=== PATIENT | male | born 1940 | race Caucasian/White ===

== ENCOUNTER → 2019-01-09 10:35 | Outpatient (CLI) | payer MEDICARE, SELFPAY ==
--- NOTE | 2019-01-09 | DI.ECHO.S_ITS ---
[facility] +---------+ : : [address] : [place] : : : : [id number] : : : : Phone: [phone]+ Echocardiogram Report + + :Name: MOIZ HAILE Study Date: 01/09/2019 Height: 70 in : :[facility] Weight: 150 lb : : Gender: Male BSA: 1.8 m2 : :: 1940 Age: 78 yrs BP: 120/82 mmHg: :Reason For Study: CAD : : Performed By: [facility] Staff : :Referring: Sarwat CENTENO B : + + Interpretation Summary 1) Normal left ventricular thickness and size with low normal systolic function (EF 50-55%). 2) Normal right ventricular size and function. 3) Borderline mitral valve prolapse involving the microfilm operator leaflet. 4) Mild mitral regurgitation present. 5) No prior Echo available for comparison. Procedure: A two-dimensional transthoracic echocardiogram with color flow and Doppler was performed. The study quality was technically difficult. Foreshortened apical windows. There is no prior echocardiogram noted for this patient. The patient was in a bradycardic rhythm during the exam. Left Ventricle: The left ventricle is normal in size. There is normal left ventricular wall thickness. Left ventricular systolic function is low normal. The ejection fraction is estimated to be 50-55%. There are no focal wall motion abnormalities. Right Ventricle: The right ventricle is normal in size and function. Atria: The left atrium is moderately dilated. The right atrium is mildly dilated. The interatrial septum is intact with no evidence for an atrial septal defect. Mitral Valve: Nodular calcification located on the anterior leaflet. There is borderline mitral valve prolapse. There is prolapse of the posterior mitral valve leaflet(s). There is mild mitral regurgitation. Aortic Valve: The aortic valve is trileaflet. The aortic valve opens well. Minimal aortic sclerosis. There is no aortic valve stenosis. There is trace aortic regurgitation. Tricuspid Valve: The tricuspid valve is normal in structure and function. There is trace tricuspid regurgitation. The right ventricular systolic pressure is estimated to be at least 18 mmHg based on an estimated right atrial pressure of 3 mm Hg. Pulmonic Valve: The pulmonic valve is normal in structure and function. There is trace pulmonic regurgitation. Great Vessels: The aortic root is normal size. The dimensions of the ascending aorta are normal. The pulmonary artery is normal size. The IVC is of normal diameter and collapses greater than 50% with a sniff. This suggests a low right atrial pressure of 3 mm Hg. Pericardium/ Pleura There is no pericardial effusion. There is no pleural effusion. MMode/2D Measurements & Calculations LVIDd: 4.6 cm LVOT diam: 2.4 cm LVIDs: 3.4 cm Ao root diam: 3.2 cm FS: 27.0 % EPSS: 1.3 cm IVSd: 1.1 cm LVPWd: 1.0 cm LV springer. diameter/BSA (cm/m^2): 2.5 LV sys. diameter/BSA (cm/m^2): 1.8 LA A2 area: 20.1 cm2 RA long axis: 4.7 cm LA A4 area: 16.6 cm2 RA area: 18.4 cm2 LA length (vol): 3.8 cm RA vol: 61.9 ml LA vol: 75.2 ml RA : 33.5 ml/m2 LA vol index: 40.7 ml/m2 TAPSE: 2.2 cm Doppler Measurements & Calculations Ao V2 max: 141.7 cm/sec LVOT Max Lex: 71.7 cm/sec Ao V2 mean: 105.7 cm/sec LV V1 max P.1 mmHg Ao max P.0 mmHg LV V1 VTI: 17.6 cm Ao mean P.9 mmHg KIEL(I,D): 2.5 cm2 Ao V2 VTI: 31.6 cm KIEL(V,D): 2.3 cm2 sev ratio: 0.56 KIEL indexed to BSA (cm^2/m^2): 1.4 MV E max lex: 36.1 cm/sec TR max lex: 193.2 cm/sec MV A max lex: 96.9 cm/sec TR max P.9 mmHg MV E/A: 0.37 PA V2 max: 66.1 cm/sec Med Peak E' Lex: 3.6 cm/sec PA V2 mean: 47.7 cm/sec E/E' med: 10.0 PA mean P.0 mmHg Lat Peak E' Lex: 2.3 cm/sec PA Accel Time: 0.14 sec E/E' lat: 15.4 E/e' average: 12.7 MV dec time: 0.29 sec SV(LVOT): 79.9 ml Reading Physician:04:42 PM
--- NOTE | 2019-01-09 15:19 | PM.TREADMILL ---
Cardiac Stress Test Report Referral & Results Date Patient Seen: 01/09/19 Requesting provider: Sarwat Reid Indication: Coronary disease, PVCs Rest ECG: Frequent PVCs including runs of ventricular bigeminy Procedure Note: Today following both written and verbal informed consent the patient was exercised according to a standard Moshe protocol patient went for a total of 6 minutes 21 seconds achieving a maximum heart rate of 131 maximum systolic blood pressure of 200. This is approximately 7.0 METS. Exercise was terminated at this point because of targets were met Patient had frequent PVCs including runs of ventricular bigeminy and several ventricular couplets. Uncertain as to whether there were multifocal ventricular depolarizations or if these were all unifocal Patient was asymptomatic and tells me he has been seen before Normal heart rate response to exercise but somewhat hypertensive throughout Function aerobic impairment rates-5% on the active scale. No ST-T segment changes Patient was also given Cardiolite through a previously started Hep-Lock IV by the diagnostic imaging staff approximately 1 minute prior to the cessation of exercise. Impression: Significant ventricular dysrhythmias above. If not previously investigated suggest continued investigation of potential etiologies for his ventricular dysrhythmia and investigation to ensure no more serious dysrhythmias are present in this patient No evidence of ischemia based on usual ECG criteria Please see perfusion imaging report as well Please note: Actual ECG tracings can be found in the PACS system.
--- NOTE | 2019-01-09 18:49 | DI.NM.S_ITS ---
DATE OF SERVICE: 01/09/2019 PROCEDURE: Exercise perfusion study. INDICATIONS FOR STRESS TEST: Left arm pain with coronary artery disease. RADIOPHARMACEUTICAL: 25.4 mCi technetium-99m Myoview IV was injected at stress and 10.3 mCi technetium-99m Myoview IV was injected at rest. It was a 1-day protocol. CARDIAC STRESS: Patient underwent exercise perfusion study under the supervision of an attending staff using standard Moshe protocol. He walked on for 6 minutes 21 seconds, achieved 92% of target heart rate. Baseline blood pressure 158/98. Peak blood pressure 200/100. Baseline EKG revealed sinus rhythm with evidence of LVH and T-wave inversion in leads V5 to V6. During stress, patient has frequent PVCs, mostly isolated but had in the form of bigeminies. Occasional ventricular couplets. Patient has usually monomorphic PVCs. No ventricular tachycardia seen. No significant symptoms were reported. RAW DATA: There is increased subdiaphragmatic activity. GATED STUDY: Stress LV ejection fraction 60% without any wall motion abnormalities. Resting end-diastolic volume is 119 mL.. TID ratio is 0.86, which is within normal limits. Lung/heart ratio is 0.31, which is within normal limits. MYOCARDIAL PERFUSION SCAN: Stress supine and resting supine images revealed small-sized mildly decreased perfusion of inferior wall, inferior apex which got resolved during prone images. Prone images revealed normal myocardial perfusion. CONCLUSION: I will call this study a normal myocardial perfusion study. Patient achieved 7 METs of workload. He walked on Moshe protocol for 6 minutes 21 seconds. Functional aerobic impairment -5%. Patient was hypertensive. EKG revealed hypertensive changes. Patient has frequent premature ventricular contractions (PVCs), as well as occasional ventricular couplets, during exercise without any ventricular tachycardia. Jose Castro - ARNAUD/ta/ doc#: [id number]/job#: [id number] dd: 01/09/2019 18:02:00 dt: 01/09/2019 18:38:00 DICTATING /COPIES TO: Javy Leonard MD COPIES MNE: TIMOTHY
== END ==
PROVIDERS: PCP Family Medicine Geriatric Medicine; Visit Provider Family Medicine Geriatric Medicine
DX: I34.0 Nonrheumatic mitral (valve) insufficiency (principal); I25.10 Atherosclerotic heart disease of native coronary artery without angina pectoris; I49.3 Ventricular premature depolarization
CPT/HCPCS: 78452; 93016; 93017; 93018; 93306; A9502

== ENCOUNTER → 2022-01-06 13:28 | Outpatient (CLI) | payer MEDICARE, SELFPAY ==
--- NOTE | 2022-01-06 | DI.CT.S_ITS ---
PROCEDURE: CT CHEST WO CON INDICATIONS: Other disorders of lung TECHNIQUE: Noncontrast 5 mm thick sections acquired from the pulmonary apices to the posterior costophrenic angles. 1 mm lung window, 5 mm thick coronal and sagittal and 7 mm axial MIP reformats were then acquired. For radiation dose reduction, the following was used: automated exposure control, adjustment of mA and/or kV according to patient size. COMPARISON: No prior studies are currently available. However, this is requested as a stat interpretation. FINDINGS: Image quality: Excellent. Lungs and pleura: Pulmonary nodules are as follows: 1. There is a thick-walled cavitary lesion in the extreme left lung base on image 301/3. It measures approximately 1.4 x 1.0 cm. 2. Ill-defined pleural-based nodular density, right upper lobe, image 194/3, approximately 0.4 x 0.8 cm. Moderate to severe centrilobular emphysema. No acute air space opacities. No pleural effusions or pneumothorax. Central and peripheral airways are patent and normal in caliber. Mediastinum: Heart size is normal. No pericardial effusion. Severe coronary artery calcifications. No mediastinal adenopathy by size criteria. Thoracic aorta and central pulmonary arteries are normal in size. Esophagus is normal in caliber. No hiatal hernia. Bones and chest wall: No suspicious bony lesions. No vertebral body compression fractures. No axillary or supraclavicular adenopathy by size criteria. Thyroid gland is unremarkable as imaged . 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 There is severe atrophy of the upper pole of the right kidney. IMPRESSION: 1. Moderate to severe centrilobular emphysema. 2. 1.4 x 1.0 cm thick-walled cavitary lesion, extreme left lung base. 3. Ill-defined pleural-based nodule, right upper lobe, 0.4 x 0.8 cm. 4. Severe coronary artery calcifications. 5. Severe atrophy of the upper pole of the right kidney. Comment: Should prior films become available, comparison could be made at that time, and an addendum can be given to this dictation. Dictated by: Reynaldo Fernandez M.D. on 01/06/2022 at 15:34 Approved by: Reynaldo Fernandez M.D. on 01/06/2022 at 15:40
== END ==
PROVIDERS: PCP Family Medicine; Referring Provider Internal Medicine Pulmonary Disease; Visit Provider Internal Medicine Pulmonary Disease
DX: J98.4 Other disorders of lung (principal); R91.8 Other nonspecific abnormal finding of lung field; J43.2 Centrilobular emphysema; I25.10 Atherosclerotic heart disease of native coronary artery without angina pectoris; N26.1 Atrophy of kidney (terminal)
CPT/HCPCS: 71250